=== PATIENT | female | born 1955 | race African-American/Black ===

== ENCOUNTER 2023-08-22 08:58 | Emergency (ER) | payer MEDICARE, OTHER ==
[~2023-08-22] VITALS: Ht 167.6 cm; Wt 52.7 kg
[2023-08-22 09:11] VITALS: BP 125/80; PULSE 99; RESP 16; TEMP 98.1
[2023-08-22] MEDS ORDERED: NETA2.5D3 OD (09:12)
[2023-08-22] MEDS ORDERED: DORZ10DR6 OU (09:12)
== END 2023-08-22 12:37 | disposition home or self-care (01) ==
LOC: EMS 08:59
DX: R39.15 Urgency of urination (principal); Z13.9 Encounter for screening, unspecified
CPT/HCPCS: 99281; Z7502